=== PATIENT | female | born 1975 | race Caucasian/White ===

== ENCOUNTER → 2018-10-16 | Outpatient (CLI) | payer OTHER ==
[~2018-10-16] MED LIST: ALBU90OI61 INH; ALPR.5 PO; Adipex-P37.5 M1; Desyrel50 MG; ETHINYL ESTRADIOL; GABA600 PO; GLUC500; HYDACE5; HYDACE5 PO; HYDR1TAB94; IBUP800 PO; Imitrex25 MG PO; Inderal40 MG PO; LEVONORGESTREL; PHENA200 PO; PROP80ER; PROP80ER PO; Percocet 5-3251 EACH PO; Prednisone20 MG PO; Prilosec20 MG PO; RANI150 PO; SPRINTEC PO; SULTRIDS PO; Zofran Odt8 MG SL; [UNRECOGNIZED DRUG - CODE] PO; [UNRECOGNIZED DRUG - OTHER] PO
[2018-10-18 15:07] LABS: HPV 16 Negative (Negative); HPV 18 Negative (Negative); HPV OTHER HR TYPES Negative (Negative)
== END | disposition home or self-care (01) ==
LOC: LAB SHORT 13:16 → LAB 13:16
PROVIDERS: Nurse Practitioner Obstetrics & Gynecology
DX: Z01.419 Encounter for gynecological examination (general) (routine) without abnormal findings (principal)
CPT/HCPCS: 87624; G0123

== ENCOUNTER 2019-05-17 00:42 | Emergency (ER) | payer OTHER ==
[~2019-05-17] VITALS: Ht 170.2 cm; Wt 95.2 kg
[2019-05-17] MEDS ORDERED: FLUO10 (01:19)
[2019-05-17] MEDS ORDERED: MOXIFLOXACIN H400 MG PO (04:48)
== END 2019-05-17 05:04 | disposition home or self-care (01) ==
LOC: ER 00:42
DX: S61.552A Open bite of left wrist, initial encounter (principal); S51.852A Open bite of left forearm, initial encounter; Z88.0 Allergy status to penicillin; Z79.899 Other long term (current) drug therapy; Y04.1XXA Assault by human bite, initial encounter
CPT/HCPCS: 99283; A9270-GY

== ENCOUNTER → 2020-08-31 | Outpatient (CLI) | payer OTHER ==
[~2020-08-31] MED LIST changes: +FAMO20 PO; +FLUO10; +Flonase 0.05% N16 GM; +GABA300 PO; +MOXIFLOXACIN H400 MG PO; +OXAYDO5 M1 PO; +OXYC5 PO; +Prozac20 MG PO; +TRAZ50 PO
[2020-09-03 03:11] LABS: CHLAMYDIA TRACHOMATIS, NAA Negative (Negative)
== END ==
LOC: LAB SHORT 15:22 → LAB 15:22
PROVIDERS: Family Medicine
DX: Z11.3 Encounter for screening for infections with a predominantly sexual mode of transmission (principal); Z88.0 Allergy status to penicillin
CPT/HCPCS: 87491; 87591

== ENCOUNTER → 2020-09-18 | Outpatient (CLI) | payer OTHER | END | disposition home or self-care (01) | LOC: LAB SHORT 16:30 → LAB 16:30 | DX: N10 Acute pyelonephritis (principal) | CPT/HCPCS: 87086 ==

== ENCOUNTER 2020-09-23 10:02 | Observation (INO) | payer OTHER ==
[~2020-09-23] VITALS: Ht 167.6 cm; Wt 105.5 kg
[~2020-09-23 10:02] MED LIST changes: -FAMO20 PO; -Flonase 0.05% N16 GM; -GABA300 PO; -OXAYDO5 M1 PO; -OXYC5 PO; -Prozac20 MG PO; -TRAZ50 PO
[2020-09-23 10:53] LABS: Source, Urine Catheter
[2020-09-23 11:01] LABS: Appearance, Urine Clear (Clear); Bilirubin, Urine Neg (Neg); Blood, Urine 5+ (Neg); Color, Urine Yellow (P-Yellow); Glucose Qualitative, Urine Neg (Neg); Ketones, Urine Neg (Neg); Leukocyte Esterase, Urine Neg (Neg); Nitrite, Urine Neg (Neg); Protein, Urine 2+ (Neg); Specific Gravity, Urine 1.025 (1.003-1.022); Urobilinogen, Urine NORM (Normal)
[2020-09-23 11:12] LABS: BASOPHILS ABSOLUTE AUTO 0.05 K/mm3 (0.00-0.23); BASOPHILS PERCENT AUTO 1 % (0-2); EOSINOPHILS ABSOLUTE AUTO 0.18 K/mm3 (0.00-0.68); EOSINOPHILS PERCENT AUTO 3 % (0-6); Hematocrit 42.6 % (33.0-51.0); Hemoglobin 13.6 g/dL (11.5-16.0); IMMATURE GRAN ABSOLUTE AUTO 0.11 K/mm3 (0.00-0.10); IMMATURE GRAN PERCENT AUTO 2 % (0-1); LYMPHOCYTES ABSOLUTE AUTO 1.76 K/mm3 (0.84-5.20); LYMPHOCYTES PERCENT AUTO 32 % (21-46); MONOCYTES ABSOLUTE AUTO 0.39 K/mm3 (0.16-1.47); MONOCYTES PERCENT AUTO 7 % (4-13); Mean Corpuscular HGB 30.4 pg (26.0-34.0); Mean Corpuscular HGB Conc 31.9 g/dL (31.5-36.5); Mean Corpuscular Volume 95 fL (80-100); Mean Platelet Volume 9.8 fL (9.1-12.4); NEUTROPHILS ABSOLUTE AUTO 3.03 K/mm3 (1.96-9.15); NEUTROPHILS PERCENT AUTO 55 % (41-73); Platelet Count 271 K/mm3 (150-400); RDW Coefficient Variation 13.9 % (11.7-14.2); RDW Standard Deviation 48.5 fL (35.1-46.3); Red Blood Cell Count 4.47 M/mm3 (3.80-5.20); White Blood Cell Count 5.52 K/mm3 (4.00-11.30)
[2020-09-23 11:22] LABS: Alanine Aminotransfer (ALT/SGP 75 U/L (12-78); Albumin, Blood 3.4 g/dL (3.4-5.0); Alk Phos 67 U/L (50-136); Anion Gap 5 mmol/L (6-16); Aspartate Aminotrans (AST/SGOT 38 U/L (12-37); Bilirubin, Total 0.4 mg/dL (0.1-1.0); Blood Urea Nitrogen 8 mg/dL (8-24); Bun/Creatinine Ratio 12.7 (12.0-20.0); CO2, Blood 25 mmol/L (21-32); Calcium, Blood 7.9 mg/dL (8.5-10.1); Chloride, Blood 112 mmol/L (98-108); Creatinine, Blood 0.63 mg/dL (0.40-1.00); Globulin, Blood 3.5 g/dL (2.2-4.0); Glomerular Filtration Rate >60 (60-); Glucose, Blood 111 mg/dL (70-99); Potassium, Blood 3.9 mmol/L (3.5-5.5); Sodium, Blood 142 mmol/L (136-145); Total Protein, Blood 6.9 g/dL (6.4-8.2)
[2020-09-23 11:31] LABS: Bacteria Few /hpf; Mucus Light (0-Heavy); Red Blood Cells, Urine 25-50 /hpf (0-2); Squamous Epithelial Cells Few /hpf (Few); White Blood Cells, Urine 0-2 /hpf (0-5)
[2020-09-23] MEDS ORDERED: Prozac20 MG PO ×2 (12:13→17:16)
[2020-09-23] MEDS ORDERED: FAMO20 PO ×2 (12:15→17:16)
[2020-09-23] MEDS ORDERED: OXYC5 PO (14:02)
[2020-09-23] MEDS ORDERED: GABA300 PO ×2 (17:15)
[2020-09-23] MEDS ORDERED: TRAZ50 PO (17:16)
[2020-09-23] MEDS ORDERED: Inderal40 MG PO (17:16)
[2020-09-23] MEDS ORDERED: Flonase 0.05% N16 GM (17:17)
--- NOTE | 2020-09-24 06:07 | NUR ---
SHIFT SUMMARY- PT. NEW ADMIT FROM ED. A&O, PLEASANT. PAINFUL LAST NIGHT, MEDICATED PER EMAR X3, REPORTED SOME RELIEF. PT. AMBULATORY IN THE ROOM. RESTED QUIETLY IN BED MOST OF THE NIGHT, NO APPARENT DISTRESS NOTED. DENIES ANY NEEDS AT THIS TIME, VSS. CALL LIGHT WITHIN REACH AND SIDE RAILS UPX2. WILL CONT TO MONITOR.
--- NOTE | 2020-09-24 16:48 | NUR ---
SHIFT SUMMARY PT CONTINUES TO REPORT L FLANK PAIN AND WAS TREATED PER EMAR AND c K PAD. URINE WAS PINK TINGED BRIEFLY AND PT STATED THE PAIN WAS MOVING DOWN HER BACKSIDE. STRAINING URINE FOR KIDNEY STONE, NO EVIDENCE OF 6MM KIDNEY STONE PASSING AT THIS TIME. POSSIBLE COBRA TRANSFER TO UROLOGY IF PT DOES NOT PASS STONE. ENCOURAGING FLUIDS, GOOD ORAL INTAKE. PT IS LYING IN BED VISITING HER MOTHER, CALLS APPROPRIATELY.
[2020-09-25 05:22] LABS: Anion Gap 5 mmol/L (6-16); Blood Urea Nitrogen 9 mg/dL (8-24); Bun/Creatinine Ratio 12.5 (12.0-20.0); CO2, Blood 26 mmol/L (21-32); Calcium, Blood 8.2 mg/dL (8.5-10.1); Chloride, Blood 107 mmol/L (98-108); Creatinine, Blood 0.72 mg/dL (0.40-1.00); Glomerular Filtration Rate >60 (60-); Glucose, Blood 94 mg/dL (70-99); Potassium, Blood 4.3 mmol/L (3.5-5.5); Sodium, Blood 138 mmol/L (136-145)
--- NOTE | 2020-09-25 06:54 | NUR ---
SHIFT SUMMARY: NO ACUTE CHANGES, VSS, PATIENT HAS SLEPT WELL THIS SHIFT. PATIENT IS CONFUSED UPON WAKING, DID NOT REMEMBER SHE WAS STAYING THE NIGHT IN THE HOSPITAL. BED ALARM IS ON.
--- NOTE | 2020-09-25 06:57 | NUR ---
SHITF SUMMARY: NO ACUTE CHANGES, VSS, ABD. PAIN IS WELL CONTROLED WITH 5MG OF OXYCODONE. VOIDING LARGE AMOUNTS OF URINE, STRAINING ALL VOIDS. NO STONES OBSERVED.
[2020-09-25] MEDS ORDERED: OXAYDO5 M1 PO (10:38)
--- NOTE | 2020-09-25 11:58 | NUR ---
DISCHARGE DISCHARGE INSTRUCTIONS, MEDICATION LIST, (NO NEW MEDS ORDERED) AND FOLLOW UP APPOINTMENT REVIEWED WITH PT AND HER MOTHER. QUESTIONS/CONCERNS ANSWERED, URINE STRAINER AND HAT SENT HOME WITH PT. PT AND HER MOTHER BOTH VERBALLY INDICATED UNDERSTANDING OF ALL INSTRUCTIONS RECEIVED. ESCORTED OUT BY MARIVEL WILKINS.
== END 2020-09-25 11:47 | disposition home or self-care (01) ==
LOC: ER 10:02 → MEDS 10:03
PROVIDERS: Emergency Medicine; Internal Medicine; ADMIT Internal Medicine
DX: N13.2 Hydronephrosis with renal and ureteral calculous obstruction (principal); G43.909 Migraine, unspecified, not intractable, without status migrainosus; G89.29 Other chronic pain; M54.9 Dorsalgia, unspecified; K21.9 Gastro-esophageal reflux disease without esophagitis; Z87.442 Personal history of urinary calculi; Z90.49 Acquired absence of other specified parts of digestive tract; Z88.0 Allergy status to penicillin; Z88.8 Allergy status to other drugs, medicaments and biological substances
CPT/HCPCS: 36415; 74018; 74176; 80048; 80053; 81001; 85025; 96374; 96375; 96376; 99285-25; A9270; G0378; J1170; J1885; J2405; J3010; J7030; P9612

== ENCOUNTER → 2021-05-24 | Outpatient (CLI) | payer OTHER ==
[~2021-05-24] MED LIST changes: +FAMO20 PO; +Flonase 0.05% N16 GM; +GABA300 PO; +OXAYDO5 M1 PO; +OXYC5 PO; +Prozac20 MG PO; +TRAZ50 PO
== END | disposition home or self-care (01) ==
LOC: LAB 10:00 → LAB SHORT 10:00
DX: J02.9 Acute pharyngitis, unspecified (principal)
CPT/HCPCS: 87081

== ENCOUNTER → 2021-06-02 | Outpatient (CLI) | payer OTHER | LOC: PLD 15:58 → LAB 15:58 → LAB SHORT 15:58 | DX: L72.3 Sebaceous cyst (principal) | CPT/HCPCS: 88304 ==

== ENCOUNTER → 2022-01-19 | Outpatient (CLI) | payer OTHER ==
[~2022-01-19] MED LIST changes: +HYDCOR10 PO; +VITAMIN D5000 UNIT PO
== END | disposition home or self-care (01) ==
LOC: LAB SHORT 10:36 → LAB 10:36
DX: N39.0 Urinary tract infection, site not specified (principal)
CPT/HCPCS: 87077; 87086; 87186

== ENCOUNTER 2022-02-04 20:00 | Emergency (ER) | payer OTHER ==
[~2022-02-04] VITALS: Ht 167.6 cm; Wt 108.9 kg
[2022-02-04 20:20] LABS: BASOPHILS ABSOLUTE AUTO 0.05 K/mm3 (0.00-0.23); BASOPHILS PERCENT AUTO 1 % (0-2); EOSINOPHILS ABSOLUTE AUTO 0.04 K/mm3 (0.00-0.68); EOSINOPHILS PERCENT AUTO 0 % (0-6); Hematocrit 44.7 % (33.0-51.0); Hemoglobin 14.9 g/dL (11.5-16.0); IMMATURE GRAN ABSOLUTE AUTO 0.15 K/mm3 (0.00-0.10); IMMATURE GRAN PERCENT AUTO 1 % (0-1); LYMPHOCYTES PERCENT AUTO 14 % (21-46); MONOCYTES ABSOLUTE AUTO 0.53 K/mm3 (0.16-1.47); MONOCYTES PERCENT AUTO 5 % (4-13); Mean Corpuscular HGB 31.6 pg (26.0-34.0); Mean Corpuscular HGB Conc 33.3 g/dL (31.5-36.5); Mean Corpuscular Volume 95 fL (80-100); Mean Platelet Volume 9.6 fL (9.1-12.4); NEUTROPHILS ABSOLUTE AUTO 8.18 K/mm3 (1.96-9.15); NEUTROPHILS PERCENT AUTO 79 % (41-73); Platelet Count 261 K/mm3 (150-400); RDW Coefficient Variation 13.8 % (11.7-14.2); RDW Standard Deviation 47.8 fL (35.1-46.3); Red Blood Cell Count 4.71 M/mm3 (3.80-5.20); White Blood Cell Count 10.35 K/mm3 (4.00-11.30)
[2022-02-04 20:44] LABS: Albumin, Blood 3.4 g/dL (3.4-5.0); Bilirubin, Total 0.6 mg/dL (0.1-1.0); Bun/Creatinine Ratio 13.5 (12.0-20.0); Calcium, Blood 8.7 mg/dL (8.5-10.1); Creatinine, Blood 0.81 mg/dL (0.40-1.00); Globulin, Blood 3.3 g/dL (2.2-4.0); Potassium, Blood 3.9 mmol/L (3.5-5.5); Total Protein, Blood 6.7 g/dL (6.4-8.2)
[2022-02-04 21:45] LABS: Source, Urine Clean Catch
[2022-02-04 22:00] LABS: Bilirubin, Urine Neg (Neg); Blood, Urine 1+ (Neg); Glucose Qualitative, Urine Neg (Neg); Ketones, Urine Neg (Neg); Leukocyte Esterase, Urine 1+ (Neg); Nitrite, Urine Neg (Neg); Protein, Urine 1+ (Neg); Specific Gravity, Urine 1.015 (1.003-1.022); Urobilinogen, Urine 1+ (Normal)
[2022-02-04 22:11] LABS: Appearance, Urine Hazy (Clear); Color, Urine Yellow (P-Yellow)
[2022-02-04 22:12] LABS: Amorphous Mod (0-Heavy); Bacteria Mod /hpf; Mucus Light (0-Heavy); Squamous Epithelial Cells Mod /hpf (Few)
[2022-02-04] MEDS ORDERED: DICY20 PO (23:31)
== END 2022-02-04 23:55 | disposition home or self-care (01) ==
LOC: ER 20:00
PROVIDERS: Emergency Medicine
DX: R10.30 Lower abdominal pain, unspecified (principal); Z88.0 Allergy status to penicillin; Z88.8 Allergy status to other drugs, medicaments and biological substances; Z79.899 Other long term (current) drug therapy; Z87.891 Personal history of nicotine dependence
CPT/HCPCS: 36415; 80053; 81001; 81025; 83690; 85025; 87086; 93005; 93010; A9270; J0500; J2405; J3010; J7030

== ENCOUNTER → 2022-10-11 | Outpatient (CLI) | payer OTHER ==
[~2022-10-11] MED LIST changes: +DICY20 PO
== END ==
LOC: LAB SHORT 17:15 → LAB 17:15
DX: R82.90 Unspecified abnormal findings in urine (principal)
CPT/HCPCS: 87077; 87086; 87186

== ENCOUNTER → 2022-10-27 | Outpatient (CLI) | payer OTHER | LOC: LAB SHORT 14:20 → LAB 14:20 | DX: R30.9 Painful micturition, unspecified (principal) | CPT/HCPCS: 87077; 87086; 87186 ==

== ENCOUNTER → 2023-05-01 | Outpatient (CLI) | payer OTHER | LOC: LAB 17:08 → LAB SHORT 17:08 | DX: H10.9 Unspecified conjunctivitis (principal) | CPT/HCPCS: 87070; 87205 ==

== ENCOUNTER → 2024-04-17 | Outpatient (CLI) | payer OTHER ==
[2024-04-17 17:43] LABS: Source, Urine Clean Catch
[2024-04-17 18:45] LABS: Appearance, Urine Cloudy (Clear); Bilirubin, Urine Neg (Neg); Blood, Urine Neg (Neg); Color, Urine Yellow (P-Yellow); Glucose Qualitative, Urine Neg (Neg); Ketones, Urine Neg (Neg); Leukocyte Esterase, Urine 1+ (Neg); Nitrite, Urine Neg (Neg); Protein, Urine Neg (Neg); Urobilinogen, Urine NORM (Normal)
[2024-04-17 19:01] LABS: Bacteria Many /hpf; Squamous Epithelial Cells Few /hpf (Few)
[2024-04-17 19:02] LABS: Amorphous Light (0-Heavy)
== END | disposition home or self-care (01) ==
LOC: LAB 17:39 → LAB SHORT 17:39
PROVIDERS: Student in an Organized Health Care Education/Training Program
DX: R82.90 Unspecified abnormal findings in urine (principal)
CPT/HCPCS: 81001; 87077; 87086; 87186

== ENCOUNTER → 2024-04-26 | Outpatient (CLI) | payer OTHER | END | disposition home or self-care (01) | LOC: LAB SHORT 14:15 | DX: L05.91 Pilonidal cyst without abscess (principal) | CPT/HCPCS: 87070; 87075; 87076; 87205 ==

== ENCOUNTER → 2024-04-30 | Outpatient (CLI) | payer OTHER ==
[2024-05-08 06:13] LABS: HPV HIGH RISK BY TMA Not Detected; HPV SOURCE Cervical
== END | disposition home or self-care (01) ==
LOC: LAB 10:57 → LAB SHORT 10:57
PROVIDERS: Family Medicine
DX: Z01.419 Encounter for gynecological examination (general) (routine) without abnormal findings (principal)
CPT/HCPCS: 87624; G0123

== ENCOUNTER 2024-06-03 14:59 | Emergency (ER) | payer OTHER ==
[~2024-06-03] VITALS: Ht 170.2 cm; Wt 111.1 kg
[2024-06-03 15:52] LABS: Hematocrit 40.5 % (33.0-51.0); Hemoglobin 13.5 g/dL (11.5-16.0); Mean Corpuscular HGB 31.3 pg (26.0-34.0); Mean Corpuscular HGB Conc 33.3 g/dL (31.5-36.5); Mean Corpuscular Volume 94 fL (80-100); Mean Platelet Volume 9.7 fL (9.1-12.4); Platelet Count 348 K/mm3 (150-400); RDW Coefficient Variation 13.6 % (11.7-14.2); RDW Standard Deviation 46.4 fL (35.1-46.3); Red Blood Cell Count 4.32 M/mm3 (3.80-5.20); White Blood Cell Count 16.75 K/mm3 (4.00-11.30)
[2024-06-03 15:58] LABS: Albumin, Blood 3.3 g/dL (3.4-5.0); Albumin/Globulin Ratio 0.9 (0.8-1.8); Bilirubin, Total 0.4 mg/dL (0.1-1.0); Bun/Creatinine Ratio 22.8 (12.0-20.0); Calcium, Blood 9.1 mg/dL (8.5-10.1); Creatinine, Blood 0.66 mg/dL (0.40-1.00); Globulin, Blood 3.8 g/dL (2.2-4.0); Potassium, Blood 4.1 mmol/L (3.5-5.5); Total Protein, Blood 7.1 g/dL (6.4-8.2)
[2024-06-03 16:55] LABS: BAND PERCENT MAN 2 % (0-8); BASOPHILS PERCENT MAN 0 % (0-2); EOSINOPHILS PERCENT MAN 0 % (0-6); LYMPHOCYTES % ATYPICAL MANUAL 1 % (0-0); LYMPHOCYTES ABSOLUTE MAN 2.51 K/mm3 (0.84-5.20); LYMPHOCYTES PERCENT MAN 14 % (21-46); METAMYELOCYTE PERCENT MAN 3 % (0-0); MONOCYTES PERCENT MAN 6 % (4-13); MYELOCYTE PERCENT MAN 3 % (0-0); NEUTROPHILS ABSOLUTE MAN 12.22 K/mm3 (1.96-9.15); SEG NEUTROPHILS PERCENT MAN 71 % (41-73); TOTAL CELLS COUNTED 100
[2024-06-03] MEDS ORDERED: Ketorolac Tromethamine 15mg Vial IV ONE ×2 (18:50→22:30)
[2024-06-03 19:53] LABS: Source, Urine Clean Catch
[2024-06-03 19:57] LABS: Appearance, Urine Hazy (Clear); Bilirubin, Urine Neg (Neg); Blood, Urine 1+ (Neg); Color, Urine Yellow (P-Yellow); Glucose Qualitative, Urine Neg (Neg); Ketones, Urine Neg (Neg); Leukocyte Esterase, Urine 2+ (Neg); Nitrite, Urine Pos (Neg); Protein, Urine Neg (Neg); Urobilinogen, Urine NORM (Normal); pH, Urine 6.5 (5.0-8.0)
[2024-06-03 20:08] LABS: Bacteria Many /hpf; Squamous Epithelial Cells Few /hpf (Few)
[2024-06-03] MEDS ORDERED: TAMS.4ER PO (22:24)
[2024-06-03] MEDS ORDERED: CEPH500 PO (22:24)
[2024-06-03] MEDS ORDERED: Cephalexin Monohydrate 500 MG Cap PO ONE (22:25)
[2024-06-03] MEDS ORDERED: Tamsulosin HCl 0.4 MG Cap PO ONE (22:25)
[2024-06-03] MEDS ORDERED: Phenazopyridine HCl 100 MG Tab PO ONE (22:25)
[2024-06-03] MEDS ORDERED: Trimethoprim/Sulfamethoxazole DS Tab PO ONE (22:45)
[2024-06-03] MEDS ORDERED: SULTRIDS PO (22:45)
[2024-06-03 22:57] VITALS: BP 134/87
== END 2024-06-03 22:58 | disposition home or self-care (01) ==
LOC: ER 14:59
PROVIDERS: Physician Assistant
DX: N20.0 Calculus of kidney (principal); N39.0 Urinary tract infection, site not specified; Z88.0 Allergy status to penicillin; Z88.8 Allergy status to other drugs, medicaments and biological substances; Z79.891 Long term (current) use of opiate analgesic; Z79.899 Other long term (current) drug therapy; Z87.891 Personal history of nicotine dependence
CPT/HCPCS: 76770; 80053; 81001; 81025; 83690; 85025; 87077; 87086; 87186; 96374; 96376; 99284-25; A9270; J1885

== ENCOUNTER → 2024-09-17 | Outpatient (CLI) | payer OTHER ==
[~2024-09-17] MED LIST changes: +ALBU2.5V5 INH; +CEPH500 PO; +FAMO40 PO; +OXYB5 PO; +TAMS.4ER PO; +VENLAFAXINE HCL50 MG PO; +VITAMIN D33000 UNIT PO; -VITAMIN D5000 UNIT PO
[2024-09-17 11:47] LABS: Source, Urine Clean Catch
[2024-09-17 14:24] LABS: Bilirubin, Urine Neg (Neg); Glucose Qualitative, Urine Neg (Neg); Ketones, Urine Neg (Neg); Leukocyte Esterase, Urine Neg (Neg); Protein, Urine Neg (Neg); Specific Gravity, Urine 1.020 (1.003-1.022); Urobilinogen, Urine NORM (Normal)
[2024-09-17 14:31] LABS: Color, Urine Pale Yellow (P-Yellow)
== END ==
LOC: LAB 11:45 → LAB SHORT 11:45
PROVIDERS: Student in an Organized Health Care Education/Training Program
DX: R10.9 Unspecified abdominal pain (principal)
CPT/HCPCS: 81001; 87077; 87086; 87186

== ENCOUNTER → 2024-10-15 | Outpatient (CLI) | payer OTHER | LOC: LAB SHORT 18:35 → LAB 18:35 | DX: L05.91 Pilonidal cyst without abscess (principal) | CPT/HCPCS: 87070; 87205 ==

== ENCOUNTER 2024-11-24 09:10 | Emergency (ER) | payer OTHER ==
[~2024-11-24] VITALS: Ht 170.2 cm; Wt 107.5 kg
[2024-11-24 10:10] VITALS: BP 135/99
[2024-11-24] MEDS ORDERED: Ketorolac Tromethamine 30mg Vial IV ONE (10:15)
[2024-11-24] MEDS ORDERED: Ondansetron HCl 2 MG / ML 2ML Vial IV ONE (10:15)
[2024-11-24] MEDS ORDERED: NS 1,000 ML IV SCH (10:20)
[2024-11-24 11:00] LABS: BASOPHILS ABSOLUTE AUTO 0.05 K/mm3 (0.00-0.23); BASOPHILS PERCENT AUTO 0 % (0-2); EOSINOPHILS ABSOLUTE AUTO 0.07 K/mm3 (0.00-0.68); EOSINOPHILS PERCENT AUTO 1 % (0-6); Hematocrit 44.3 % (33.0-51.0); Hemoglobin 14.4 g/dL (11.5-16.0); IMMATURE GRAN ABSOLUTE AUTO 0.08 K/mm3 (0.00-0.10); IMMATURE GRAN PERCENT AUTO 1 % (0-1); LYMPHOCYTES ABSOLUTE AUTO 1.59 K/mm3 (0.84-5.20); LYMPHOCYTES PERCENT AUTO 13 % (21-46); MONOCYTES ABSOLUTE AUTO 0.69 K/mm3 (0.16-1.47); MONOCYTES PERCENT AUTO 6 % (4-13); Mean Corpuscular HGB Conc 32.5 g/dL (31.5-36.5); Mean Corpuscular Volume 92 fL (80-100); NEUTROPHILS ABSOLUTE AUTO 9.99 K/mm3 (1.96-9.15); NEUTROPHILS PERCENT AUTO 80 % (41-73); NRBC ABSOLUTE 0.00 K/mm3 (0.00-0.02); NRBC Auto 0.0 /100 WBC (0.0-0.2); Platelet Count 333 K/mm3 (150-400); RDW Coefficient Variation 14.6 % (11.7-14.2); RDW Standard Deviation 49.1 fL (35.1-46.3)
[2024-11-24 11:29] LABS: Alanine Aminotransfer (ALT/SGP 38.0 U/L (12-78); Albumin, Blood 3.9 g/dL (3.4-5.0); Albumin/Globulin Ratio 1.1 (0.8-1.8); Anion Gap 9.0 mmol/L (3-11); Aspartate Aminotrans (AST/SGOT 26.0 U/L (12-37); Bilirubin, Total 0.7 mg/dL (0.1-1.0); Blood Urea Nitrogen 9.0 mg/dL (8-24); CO2, Blood 24.0 mmol/L (21-32); Calcium, Blood 9.2 mg/dL (8.5-10.1); Chloride, Blood 109.0 mmol/L (98-108); Creatinine, Blood 0.78 mg/dL (0.40-1.00); Globulin, Blood 3.5 g/dL (2.2-4.0); Glucose, Blood 122.0 mg/dL (70-99); Potassium, Blood 3.7 mmol/L (3.5-5.5); Sodium, Blood 138.0 mmol/L (136-145); Total Protein, Blood 7.4 g/dL (6.4-8.2)
[2024-11-24] MEDS ORDERED: Cipro500 MG PO (11:49)
[2024-11-24] MEDS ORDERED: Flagyl500 MG PO (11:49)
== END 2024-11-24 12:22 | disposition home or self-care (01) ==
LOC: ER 09:10
PROVIDERS: Emergency Medicine
DX: K52.9 Noninfective gastroenteritis and colitis, unspecified (principal); Z88.0 Allergy status to penicillin; Z88.8 Allergy status to other drugs, medicaments and biological substances; Z79.899 Other long term (current) drug therapy; Z87.891 Personal history of nicotine dependence
CPT/HCPCS: 74177; 80053; 83690; 84703; 85025; 96374-59; 96375; 99284-25; A9270; J1885; J2405; J7030; Q9967

== ENCOUNTER 2024-12-04 14:48 | Emergency (ER) | payer OTHER ==
[~2024-12-04] VITALS: Ht 170.2 cm; Wt 106.6 kg
[~2024-12-04 14:48] MED LIST changes: +Cipro500 MG PO; +Flagyl500 MG PO
[2024-12-04] MEDS ORDERED: Metoclopramide HCl 5MG / ML 2ML Vial IV ONE (15:40)
[2024-12-04] MEDS ORDERED: NS 1,000 ML IV SCH (15:40)
[2024-12-04 16:10] LABS: BASOPHILS ABSOLUTE AUTO 0.05 K/mm3 (0.00-0.23); BASOPHILS PERCENT AUTO 1 % (0-2); EOSINOPHILS ABSOLUTE AUTO 0.14 K/mm3 (0.00-0.68); EOSINOPHILS PERCENT AUTO 2 % (0-6); Hematocrit 41.9 % (33.0-51.0); Hemoglobin 13.7 g/dL (11.5-16.0); IMMATURE GRAN ABSOLUTE AUTO 0.05 K/mm3 (0.00-0.10); IMMATURE GRAN PERCENT AUTO 1 % (0-1); LYMPHOCYTES ABSOLUTE AUTO 2.12 K/mm3 (0.84-5.20); LYMPHOCYTES PERCENT AUTO 26 % (21-46); MONOCYTES ABSOLUTE AUTO 0.53 K/mm3 (0.16-1.47); MONOCYTES PERCENT AUTO 7 % (4-13); Mean Corpuscular HGB Conc 32.7 g/dL (31.5-36.5); Mean Corpuscular Volume 93 fL (80-100); NEUTROPHILS ABSOLUTE AUTO 5.20 K/mm3 (1.96-9.15); NEUTROPHILS PERCENT AUTO 64 % (41-73); NRBC ABSOLUTE 0.00 K/mm3 (0.00-0.02); NRBC Auto 0.0 /100 WBC (0.0-0.2); Platelet Count 306 K/mm3 (150-400); RDW Coefficient Variation 14.6 % (11.7-14.2); RDW Standard Deviation 50.0 fL (35.1-46.3)
[2024-12-04 16:49] LABS: Alanine Aminotransfer (ALT/SGP 44.0 U/L (12-78); Albumin, Blood 3.9 g/dL (3.4-5.0); Albumin/Globulin Ratio 1.2 (0.8-1.8); Anion Gap 8.0 mmol/L (3-11); Aspartate Aminotrans (AST/SGOT 22.0 U/L (12-37); Bilirubin, Total 0.5 mg/dL (0.1-1.0); Blood Urea Nitrogen 12.0 mg/dL (8-24); CO2, Blood 27.0 mmol/L (21-32); Calcium, Blood 9.4 mg/dL (8.5-10.1); Chloride, Blood 107.0 mmol/L (98-108); Creatinine, Blood 1.1 mg/dL (0.40-1.00); Globulin, Blood 3.2 g/dL (2.2-4.0); Glucose, Blood 130.0 mg/dL (70-99); Potassium, Blood 3.9 mmol/L (3.5-5.5); Sodium, Blood 138.0 mmol/L (136-145); Total Protein, Blood 7.1 g/dL (6.4-8.2)
[2024-12-04 19:51] LABS: Source, Urine Voided
[2024-12-04 20:01] LABS: Bilirubin, Urine Neg (Neg); Color, Urine Yellow (P-Yellow); Glucose Qualitative, Urine Neg (Neg); Ketones, Urine Neg (Neg); Leukocyte Esterase, Urine 1+ (Neg); Protein, Urine 1+ (Neg); Specific Gravity, Urine 1.020 (1.003-1.022); Urobilinogen, Urine NORM (Normal)
[2024-12-04 20:31] LABS: Red Blood Cells, Urine 0-2 /hpf (0-2)
[2024-12-04] MEDS ORDERED: Ondansetron HCl 2 MG / ML 2ML Vial IV ONE (21:00)
[2024-12-04] MEDS ORDERED: Morphine Sulfate 4 MG/1 ML Injection IV ONE (21:00)
[2024-12-04] MEDS ORDERED: ONDA4ODT MM (21:26)
[2024-12-04] MEDS ORDERED: PROBIOTIC1 EA14 PO (21:26)
[2024-12-04] MEDS ORDERED: DICY20 PO (21:26)
[2024-12-04] MEDS ORDERED: METO10 PO (21:26)
[2024-12-04 21:55] VITALS: BP 95/55
== END 2024-12-04 22:05 | disposition home or self-care (01) ==
LOC: ER 14:48
PROVIDERS: Emergency Medicine
DX: K52.9 Noninfective gastroenteritis and colitis, unspecified (principal); Z88.0 Allergy status to penicillin; Z88.8 Allergy status to other drugs, medicaments and biological substances; Z79.2 Long term (current) use of antibiotics; Z79.899 Other long term (current) drug therapy; Z87.891 Personal history of nicotine dependence; Z87.442 Personal history of urinary calculi
CPT/HCPCS: 80053; 81001; 83690; 85025; 87086; 96361; 96374; 96375; 99284-25; J2270; J2405; J2765; J7030